=== PATIENT | male | born 1995 | race Caucasian/White ===

== ENCOUNTER 2018-01-23 11:58 | Observation (INO) | payer OTHER, SELFPAY ==
[2018-01-23] VITALS (11 sets, daily range): BP systolic 105–154; BP diastolic 48–91; PULSE 43–86; RESP 16–18; TEMP 36.2–36.9; O2SAT 97–100; BMI 25.2; BMI 24.8; BMI 24.9
[2018-01-23] MEDS: Ondansetron 4 MG/2 ML Vial IV (11:45)
[2018-01-23] MEDS: Morphine 2 MG/ML Syringe 8 MG IV (11:45)
--- NOTE | 2018-01-23 12:23 | RAD_ITS ---
STUDY: X-RAY - RIGHT FEMUR REASON FOR STUDY: Male, 22 years old. Soft tissue laceration. TECHNIQUE: Radiological exam, femur, minimum 2 views COMPARISON: None. FINDINGS: Normal visualized femur. There is evidence of soft tissue laceration overlying the anterior lateral portion of the mid leg. RAD/Femur Min 2 Views IMPRESSION: Large soft tissue laceration. No bony abnormality is seen. No radiopaque foreign body is present. Electronically Signed: Pawan Rodas MD at 13:15 EDT Tel [phone], Service support ,
--- NOTE | 2018-01-23 13:52 | PCM.HP.STD ---
History of Present Illness Date of Admission: 01/23/18 Chief Complaint: right thigh pain The patient is a 22 year old otherwise healthy male presents today after working with his chainsaw cutting wood. Patient lost control of the chain saw and sustained an injury to his right thigh. Emergency department physician attempted to numb up the area and cleaned the wound however patient had significant beds of felt a bedside debridement would be inadequate. Patient was given 2 g Ancef. He did have stitches recently in his leg and has had up-to-date tetanus. Patient reports achy 7 out of 10 pain better with pain medications. No numbness and tingling in the distal extremity. He does chew tobacco daily denies smoking. Past Medical History Allergies No Known Allergies Allergy (Verified 01/23/18 12:02) Home Medications: Ambulatory Orders Medication Instructions Recorded NK 01/23/18 Surgical History: no surgical history Psychiatric History: No pertinent psych hx Lives: Alone Tobacco Use: Non-smoker, Chew Alcohol: Occasional Drugs: None Review of Systems Constitutional: Denies: Chills, Fever, Weight Change HEENT: Denies: Head Aches, Sinus Congestion, Sinus Drainage Cardiovascular: Denies: Chest Pain, Palpitations Respiratory: Denies: Cough, Shortness of breath at rest, Sputum production Gastrointestinal: Denies: Abdominal Pain, Nausea, Vomiting Genitourinary: Denies: Dysuria Musculoskeletal: Reports: - - See HPI Skin: Reports: Wounds. Denies: Rash Neurological: Denies: Numbness, Tingling, Focal weakness Psychiatric: Denies: Anxiety, Depression, Homicidal Ideations, Suicidal Ideations Hematologic/ Lymphatic: Denies: Easy Bruising, Easy Bleeding VTE Information - Inpt Only VTE Present on Admission: No VTE Mechan Device Prophylaxis: SCD's VTE Pharm Prophylaxis ordered?: No Reason prophylaxis not ordered:: Medical Contraindication - Plan for surgery this afternoon - Physical Exam General: Alert, Oriented x3, Cooperative HEENT: Atraumatic Neck: No JVD Lungs: - - Nonlabored breathing Cardiovascular: - - Regular pulse rate Abdomen: Non-Distended Extremities: - - Left lower extremity has some medial thigh small 1 cm lacerations roughly 3 over the mid medial thigh. Saphenous, sural, superficial peroneal, deep peroneal, tibial nerve distributions. Positive dorsiflexion EHL and plantar flexion. 2+ DP and PT pulses. Right lower extremity shows a deep 15 cm x 10 cm laceration obliquely in the anterior thigh that goes deep into the muscle belly. No gross bleeding is noted. The area has been numbed up. The skin edges show gross debris and necrosis. 2+ DP and PT pulses distally. Positive dorsiflexion EHL and plantar flexion. Patient is able to fully extend his knee and do a straight leg raise. Sensations intact light touch saphenous, superficial peroneal, deep peroneal sural and tibial nerve distributions. Vital Signs Temp Pulse Resp BP Pulse Ox 97.1 F L 86 16 142/69 H 100 01/23/18 11:59 01/23/18 11:59 01/23/18 11:59 01/23/18 11:59 01/23/18 11:59 Oxygen Delivery Method Room Air Weight: 186 lb 1.122 oz Body Mass Index (BMI) 25.2 Assessment/Plan Patient has a traumatic laceration due to a chainsaw of the right thigh. At this time a debridement in the emergency department would be inadequate. Patient has been consented for surgery. Discussed risk benefits of surgery which include but not limited to blood loss, DVTs, PEs, neurovascular was complex, the risk of anesthesia including loss of life. Patient did straighten understanding wishes to proceed. Patient also understands that this may require multiple debridements depending on the amount of gross debris and infections that may develop. Patient has been started on Ancef. We will make him n.p.o. We will admit him to observation tonight. We will plan on washing his wounds out tonight with the intense debridement followed by possible wound closure versus wound VAC placement. Patient is agreeable to this plan and able to sign informed consent he also understands it may take multiple surgeries. RAMONITA [facility] Office:
[2018-01-23] MEDS: Cefazolin 2 GM in 0.9% Normal Saline 100 ML IV (14:46)
[2018-01-23] MEDS: Morphine 4 MG/ML Syringe IV (14:46)
--- NOTE | 2018-01-23 16:22 | ED.VISSUMM ---
- ER Visit Summary Date of Service: 01/23/18 Chief Complaint: Chainsaw injury History of Present Illness: The patient is a 22 M presenting for evaluation secondary to a chainsaw injury. Patient reports that he was using a chainsaw earlier today and suffered a laceration to his right thigh mainly but also some smaller lacerations to his right groin and left groin weakness. Pain is severe worse with movement he denies any numbness or weakness his tetanus status is up-to-date. Physical Examination: Primary survey: Airway is patent, breath sounds equal bilateral, central peripheral pulses 2+ and symmetric, GCS 15 out of 15. Vitals within normal limits. Secondary survey: General: Well-nourished well-developed no acute distress Head: Normocephalic atraumatic Eyes: PERRLA, EOMI ENT: Atraumatic Neck: Nontender full range of motion, no step-offs noted Heart: Regular rate and rhythm no murmurs Lungs: Respirations nondistressed, lung sounds clear to auscultation bilaterally, chest nontender, normal chest excursion bilaterally Abdomen: Soft nontender nondistended normal bowel sounds no palpable abdominal masses Back: Nontender no step-offs noted Extremities: Examination patient's left lower extremity shows some smaller more superficial lacerations noted of the patient's left medial thigh measuring approximately 3 cm and 2 cm. Normal range of motion of the left hip knee ankle and foot with normal distal pulses on that side. Right lower extremity exam shows evidence of a large full-thickness approximately 15 cm laceration going through fascia down into the patient's musculature. It appears to violate through the rectus femoris into the vastus muscles. Patient has range of motion of the thigh and knee with good extensor mechanism. Normal sensation distally normal distal pulses normal distal capillary refill. There is also a more proximal laceration that measures about 2 cm and is much more superficial. Skin: Normal color no trauma Neuro: Alert and oriented ?4, GCS 15 out of 15, no lateralizing neurological deficits. Test Results: Thigh x-ray shows no evidence of bony injury Emergency Department Course and Treatment: Patient presented for evaluation secondary to a chain saw injury. Primary and secondary surveys are noted as above. I anesthetized the patient's large thigh wound with total of 20 cc 1% lidocaine and started to irrigate. Large amounts of foreign material including pieces of fabric, would were coming from all areas within this wound. The wound also seems to violate the first layer of the patient's thigh musculature going into the deep musculature. I believe that this patient would benefit from operative washout. I discussed this with Dr. Chase who agreed. Patient was given a dose of Ancef and will be taken to the operating room. Disposition: Operating room Impression: 1. Right thigh laceration secondary to chainsaw injury Critical care time 35 minutes This note was generated with [employer] dictation software. It may contain incorrect words, spelling, and punctuation that were not noted in review of the chart prior to signing ED Disposition - Plan for ED Patient: Disposition: Acute Care Hospital [facility] Chief Complaint: Laceration
[2018-01-23 17:15] LABS: Absolute Lymphocyte Count 3.91 X10^3/ul (0.83-4.51); Absolute Neutrophil Count 6.9 X10^3/uL (2.0-7.7); Basophil# 0.04 X10^3/uL; Basophil% 0.3 % (0-1); Eosinophil# 0.05 X10^3/uL; Eosinophils% 0.4 % (0-5); Hematocrit 44.1 % (40-54); Hemoglobin 15.9 g/dl (13.0-16.5); Lymphocyte # 3.91 X10^3/ul (4.0); Lymphocyte % 33.2 % (19-41); Mean Corp Hgb Conc 36.1 g/gl (32-36); Mean Corpuscular Hgb 30.9 pg (27.0-32.0); Mean Corpuscular Volume 85.6 fL (80-94); Mean Platelet Vol. 11.3 fl (6.2-12.0); Monocyte% 7.6 % (0-10); Neutrophil # 6.86 X10^3/uL (2.7-7.7); Neutrophil % 58.2 % (47-70); Platelet Count 312 K/mm3 (150-450); RBC Distribution Width CV 13.1 % (11.6-14.6); RBC Distribution Width SD 40.3 fl (35.1-43.9); Red Blood Count 5.15 M/mm3 (4.6-6.2); White Blood Count 11.8 K/mm3 (4.4-11.0)
[2018-01-23 17:28] LABS: POSITIVE COUNT NO; POSITIVE DIFFERENTIAL NO; POSITIVE MORPHOLOGY NO
--- NOTE | 2018-01-23 18:13 | PCM.OPRPT ---
Report of Operation Date of Procedure: 01/23/18 Pre-Operative Diagnosis: Chainsaw injury bilateral thighs Post-Operative Diagnosis: Chainsaw injury bilateral thighs Surgery/Procedure Performed:: 1. Irrigation debridement right thigh wound skin subcutaneous fatty tissue, fascia and muscle 168 mm x 65 mm. 2. Complex wound closure right thigh 168 mm. 3. Irrigation debridement right thigh wound skin subcutaneous tissue and fat 16 mm x 10 mm. 4. Irrigation debridement leftt thigh wound skin subcutaneous tissue and fat 15 mm x 8 mm. 5. Irrigation debridement leftt thigh wound skin subcutaneous tissue and fat 17 mm x 8 mm. 6. Irrigation debridement leftt thigh wound skin subcutaneous tissue and fat 20 mm x 8 mm Description of Surgical Findings:: Wounds were grossly contaminated with debris from the patient's clothing and dirt. They were aggressively cleaned and at the end of the debridement no debris could be noted in the wound. pediatric care coordinator: Reji Odom Type of Anesthesia:: General Anesthesiologist: Honey Ojeda Special Medications: 2 g Ancef Estimated Blood Loss (mL): 50 Fluids Replaced: 1000 milliliters crystalloid Description of Procedure: On the date of the procedure patient was greeted in the preoperative area. Both eyes were marked and the wounds to be debrided were identified. Patient was brought back to the operating room where he was transferred to the table in the supine position. Anesthesia assumed control the C-spine and airway and remained to control throughout the remainder the procedure. All bony prominences identified well-padded. Anesthesia administered general anesthetic. Once the patient was comfortable dressings were removed. Both legs were prepped in a sterile fashion using Betadine prep. Once they were prepped both the retail store assistant and myself scrubbed. Upon reentering the room both legs were prepped in a standard orthopedic fashion. Timeout was called. When agreed upon the side, the site, and the procedure to be performed, patient's identity and antibiotics given. At this time our attention was directed towards the left thigh. There were 3 wounds on this side. We started with the most proximal wound which was 15 mm x 8 mm. Skin was debrided around the edges. Sub cutaneous tissue and fat was debrided. This was done sharply and with curettage. We then directed our attention to the middle wound which was 17 mm x 8 mm. Skin was debrided around the edges. Sub cutaneous tissue and fat was debrided. This was done sharply and with curettage. We then directed our attention to the most distal wound which was 20 mm x 10 mm. Skin was debrided around the edges. Sub cutaneous tissue and fat was debrided. This was done sharply and with curettage. Once these wounds were adequately debrided normal saline was used to irrigate out the wounds with low-pressure lavage. Once wounds were appropriately irrigated my retail store assistant then closed the wounds using a mattress type suture obtaining a primary closure while I turned my attention to the right thigh. As my attention was turned to the right thigh I focused on the more proximal wound initially which was 16 mm x 10 mm. Skin was debrided around the edges. Sub cutaneous tissue and fat was debrided. This was done sharply and with curettage. Once this wound was debrided attention was directed towards the large wound on the right thigh. This wound had the most gross debris. 2 mm of skin edges were debrided at the lateral border of the wound and medially where there was significant pattern consistent with a chain saw injury with necrotic and jagged skin edges 5 mm of skin edge was debrided at the medial border. Once the skin edges were debrided subcutaneous fat and fascia were debrided in a sharp fashion. We also debrided any gross debris. We then directed our attention to the muscle. The muscle was explored and gross debris was removed and debrided and necrotic muscle was debrided. The injury did not go completely down to the bone. The confluence of the vastus musculature was noted as the deepest aspect of the wound. Once the wound was adequately debrided normal saline under low-pressure lavage roughly 6 L was irrigated throughout the wound. Periodically throughout this time irrigation was stopped and the wound was re-debrided with any debris or necrotic tissue was noted. After we adequately irrigated out the wound the wound was once again explored and no further necrotic debris or foreign debris were noted. At this time based on the minimal localized swelling we elected to proceed with primary closure. Fascia was closed in interrupted fashion using 0 Vicryl. Once the fascia was closed all compartments remain soft. At this time the skin was able to be approximated. We loosely approximated the skin using 2-0 Vicryl subcutaneously. Then we used mattress sutures/retention sutures to close the entirety of the 16 cm wound performing the complex wound closure wound closure was complex because we had to identify the appropriate skin edges and maximum appropriately as well as used retention sutures to close the gaping wound. Once this was closed Xeroform dressing was placed on all wounds, sterile dressing was placed on the wounds, compressive dressing was placed on all wounds. Both thighs had an Rafi bandage wrap in the right leg was placed in a knee immobilizer. Patient was then awakened by anesthesia and transferred to the PACU for recovery in stable condition. Postop plan: Patient will wear the knee immobilizer on the right for 2 weeks. He will get 24 hours of antibiotics and we will reassess his wound tomorrow. He can be weight-bear as tolerated in the knee immobilizer. Will be weight-bear as tolerated range of motion as tolerated in the left lower extremity. - Complications None - Admit VTE Documentation VTE Present on Admission: No VTE Mechan Device Prophylaxis: SCD's, Thigh High LUIS Hose VTE Pharm Prophylaxis ordered?: Yes
--- NOTE | 2018-01-23 18:17 | OP.PCM_ITS ---
Report of Operation Date of Procedure: 01/23/18 Pre-Operative Diagnosis: Chainsaw injury bilateral thighs Post-Operative Diagnosis: Chainsaw injury bilateral thighs Surgery/Procedure Performed:: 1. Irrigation debridement right thigh wound skin subcutaneous fatty tissue, fascia and muscle 168 mm x 65 mm. 2. Complex wound closure right thigh 168 mm. 3. Irrigation debridement right thigh wound skin subcutaneous tissue and fat 16 mm x 10 mm. 4. Irrigation debridement leftt thigh wound skin subcutaneous tissue and fat 15 mm x 8 mm. 5. Irrigation debridement leftt thigh wound skin subcutaneous tissue and fat 17 mm x 8 mm. 6. Irrigation debridement leftt thigh wound skin subcutaneous tissue and fat 20 mm x 8 mm Description of Surgical Findings:: Wounds were grossly contaminated with debris from the patient's clothing and dirt. They were aggressively cleaned and at the end of the debridement no debris could be noted in the wound. harpsichord maker: Reji Odom Type of Anesthesia:: General Anesthesiologist: Honey Ojeda Special Medications: 2 g Ancef Estimated Blood Loss (mL): 50 Fluids Replaced: 1000 milliliters crystalloid Description of Procedure: On the date of the procedure patient was greeted in the preoperative area. Both eyes were marked and the wounds to be debrided were identified. Patient was brought back to the operating room where he was transferred to the table in the supine position. Anesthesia assumed control the C-spine and airway and remained to control throughout the remainder the procedure. All bony prominences identified well-padded. Anesthesia administered general anesthetic. Once the patient was comfortable dressings were removed. Both legs were prepped in a sterile fashion using Betadine prep. Once they were prepped both the psychiatric nursing assistant and myself scrubbed. Upon reentering the room both legs were prepped in a standard orthopedic fashion. Timeout was called. When agreed upon the side, the site, and the procedure to be performed, patient's identity and antibiotics given. At this time our attention was directed towards the left thigh. There were 3 wounds on this side. We started with the most proximal wound which was 15 mm x 8 mm. Skin was debrided around the edges. Sub cutaneous tissue and fat was debrided. This was done sharply and with curettage. We then directed our attention to the middle wound which was 17 mm x 8 mm. Skin was debrided around the edges. Sub cutaneous tissue and fat was debrided. This was done sharply and with curettage. We then directed our attention to the most distal wound which was 20 mm x 10 mm. Skin was debrided around the edges. Sub cutaneous tissue and fat was debrided. This was done sharply and with curettage. Once these wounds were adequately debrided normal saline was used to irrigate out the wounds with low- pressure lavage. Once wounds were appropriately irrigated my psychiatric nursing assistant then closed the wounds using a mattress type suture obtaining a primary closure while I turned my attention to the right thigh. As my attention was turned to the right thigh I focused on the more proximal wound initially which was 16 mm x 10 mm. Skin was debrided around the edges. Sub cutaneous tissue and fat was debrided. This was done sharply and with cur ettage. Once this wound was debrided attention was directed towards the large wound on the right thigh. This wound had the most gross debris. 2 mm of skin edges were debrided at the lateral border of the wound and medially where there was significant pattern consistent with a chain saw injury with necrotic and jagged skin edges 5 mm of skin edge was debrided at the medial border. Once the skin edges were debrided subcutaneous fat and fascia were debrided in a sharp fashion. We also debrided any gross debris. We then directed our attention to the muscle. The muscle was explored and gross debris was removed and debrided and necrotic muscle was debrided. The injury did not go completely down to the bone. The confluence of the vastus musculature was noted as the deepest aspect of the wound. Once the wound was adequately debrided normal saline under low- pressure lavage roughly 6 L was irrigated throughout the wound. Periodically throughout this time irrigation was stopped and the wound was re-debrided with any debris or necrotic tissue was noted. After we adequately irrigated out the wound the wound was once again explored and no further necrotic debris or foreign debris were noted. At this time based on the minimal localized swelling we elected to proceed with primary closure. Fascia was closed in interrupted fashion using 0 Vicryl. Once the fascia was closed all compartments remain soft. At this time the skin was able to be approximated. We loosely approximated the skin using 2-0 Vicryl subcutaneously. Then we used mattress sutures/retention sutures to close the entirety of the 16 cm wound performing the complex wound closure wound closure was complex because we had to identify the appropriate skin edges and maximum appropriately as well as used retention sutures to close the gaping wound. Once this was closed Xeroform dressing was placed on all wounds, sterile dressing was placed on the wounds, compressive dressing was placed on all wounds. Both thighs had an Rafi bandage wrap in the right leg was placed in a knee immobilizer. Patient was then awakened by anesthesia and transferred to the PACU for recovery in stable condition. Postop plan: Patient will wear the knee immobilizer on the right for 2 weeks. He will get 24 hours of antibiotics and we will reassess his wound tomorrow. He can be weight-bear as tolerated in the knee immobilizer. Will be weight-bear as tolerated range of motion as tolerated in the left lower extremity. - Complications None - Admit VTE Documentation VTE Present on Admission: No VTE Mechan Device Prophylaxis: SCD's, Thigh High LUIS Hose VTE Pharm Prophylaxis ordered?: Yes
[2018-01-23] MEDS: Ketorolac 15 MG/ML Vial IV (19:58)
[2018-01-23] MEDS: 0.9% NaCl Peripheral Flush Adult/Peds IV (21:33)
[2018-01-23] MEDS: oxyCODONE 5 MG Tablet PO (21:33)
[2018-01-24] MEDS: Cefazolin 1 GM/50 ML BAG IV ×2 (01:36→09:38)
[2018-01-24] MEDS: 0.9% NaCl Peripheral Flush Adult/Peds IV (02:37)
[2018-01-24 02:49] VITALS: BP 117/53; PULSE 64; RESP 12; TEMP 36.8; O2SAT 96
[2018-01-24 07:04] LABS: Hematocrit 41.5 % (40-54); Hemoglobin 14.2 g/dl (13.0-16.5); Mean Corp Hgb Conc 34.2 g/gl (32-36); Mean Corpuscular Hgb 29.9 pg (27.0-32.0); Mean Corpuscular Volume 87.4 fL (80-94); Mean Platelet Vol. 11.2 fl (6.2-12.0); Platelet Count 218 K/mm3 (150-450); RBC Distribution Width CV 13.3 % (11.6-14.6); RBC Distribution Width SD 41.4 fl (35.1-43.9); Red Blood Count 4.75 M/mm3 (4.6-6.2); White Blood Count 12.1 K/mm3 (4.4-11.0)
[2018-01-24] MEDS: oxyCODONE 5 MG Tablet PO ×2 (07:06→13:42)
[2018-01-24 07:07] LABS: Scan Indicated on CBC? Y/N NO
[2018-01-24 07:29] LABS: Creatinine, Serum 0.91 mg/dL (0.70-1.30); EST Glomerular Filtration Rate 109 mL/min (>60); Est Glom Filt Rate - Afr Amer 132 mL/min (>60); Estimated Creatinine Clearance 138.57 ml/min
--- NOTE | 2018-01-24 07:35 | PCM.PN.ORT ---
Subjective: The patient was sitting in bed upon examination. Patient denies any chest pain, shortness of breath, dizziness, lightheadedness, nausea or vomiting, or calf pain. Pain is controlled on medications. No adverse overnight events. Patient is currently in a knee immobilizer on the right lower extremity. He is weightbearing as tolerated with the knee immobilizer on. Overall patient is doing well. Plan will be for him to possibly go home this afternoon. Objective: Vital signs stable and afebrile. Patient is able to plantarflex and dorsiflex actively. Sensation is intact to light touch to saphenous, sural, superficial and deep peroneal, and tibial distribution. Dressings were taken down and wound was inspected. There is no active drainage and overall looks very well. Negative Homans bilaterally, negative signs and symptoms of DVT. - Physical Exam General: Alert, Oriented x3, Cooperative, No apparent distress Vital Signs Temp Pulse Resp BP Pulse Ox 98.2 F 64 12 117/53 L 96 01/24/18 02:49 01/24/18 02:49 01/24/18 02:49 01/24/18 02:49 01/24/18 02:49 Oxygen Delivery Method Room Air Weight: 83.143 kg Body Mass Index (BMI) 24.8 Intake and Output for Last 24 Hours 01/22/18 01/23/18 01/24/18 23:59 23:59 23:59 Intake Total 3525 / 3525 667 / 667 Output Total 0 / 0 Balance 3525 / 3525 667 / 667 Laboratory Tests Past 24 Hrs 01/23/18 01/23/18 01/24/18 12:05 12:05 06:10 WBC 11.8 H 12.1 H RBC 5.15 4.75 Hgb 15.9 14.2 Hct 44.1 41.5 MCV 85.6 87.4 MCH 30.9 29.9 MCHC 36.1 H 34.2 RDW 13.1 13.3 RDW Differential 40.3 41.4 Plt Count 312 218 MPV 11.3 11.2 Immature Gran % (Auto) 0.300 Neut % (Auto) 58.2 Lymph % (Auto) 33.2 [place] % (Auto) 7.6 Eos % (Auto) 0.4 Baso % (Auto) 0.3 Absolute Neuts (auto) 6.9 Absolute Lymphs (auto) 3.91 Total Counted Not Reportable Creatinine Estim Creat Clear Calc Est GFR (MDRD) Af Amer Est GFR (MDRD) Non-Af Blood Type A POSITIVE Antibody Screen NEGATIVE 01/24/18 06:10 WBC RBC Hgb Hct MCV MCH MCHC RDW RDW Differential Plt Count MPV Immature Gran % (Auto) Neut % (Auto) Lymph % (Auto) [place] % (Auto) Eos % (Auto) Baso % (Auto) Absolute Neuts (auto) Absolute Lymphs (auto) Total Counted Creatinine 0.91 Estim Creat Clear Calc 138.57 Est GFR (MDRD) Af Amer 132 Est GFR (MDRD) Non-Af 109 Blood Type Antibody Screen Medical Necessity - Tobacco Use Smoking Status: Current every day smoker Tobacco Use: Non-smoker, Chew Assessment/Plan 1. S/P irrigation debridement right thigh wound with complex wound closure and irrigation debridement left thigh wound POD #1 2. Continue Pain Medications: Tylenol and oxycodone 3. PT/OT: Patient will weight-bear as tolerated with the knee immobilizer on the right lower extremity for 2 weeks. No range of motion right knee. Weight-bear as tolerated on the left lower extremity with range of motion as tolerated 4. Disposition: Plan will be for possible discharge this afternoon. Continue with antibiotics postoperatively for 24 hours. Overall incisions appear well. He will continue with the knee immobilizer on the right lower extremity for 2 weeks with no range of motion. Weight-bear as tolerated bilaterally. Okay for gentle range of motion on the left lower extremity as tolerated. Prescriptions are attached to chart. Patient will follow-up in [address] Bandar Chase for reevaluation of incisions and suture removal.
--- NOTE | 2018-01-24 07:46 | DCINST_ITS ---
Discharge Diet: No Restrictions Discharge Activity: May Not Drive Ice area for (Minutes): 20 - Ice area for 20 minutes each hour while awake Weight Bearing Status: Weight bearing as tolerated - With knee immobilizer on right lower extremity Keep extremity elevated above heart level: Operative Extremity Call your doctor if your incision/area has: Continuous Slow Oozing, Sudden Increased Bleeding, Increased Pain/ Swelling, Increased Redness, Foul Smelling Discharge Call your doctor if you observe: Fever of 101 or Higher, Coldness, Increased Pain, Numbness or Tingling, Change in Color Change Dressing in (Days):: 1 - Daily dressing changes Additional Instructions: Keep incisions clean and dry. Okay for daily dressing changes bilaterally. Weight-bear as tolerated with knee immobilizer on right lower extremity. No range of motion right knee. Okay to work on gentle range of motion of the left knee as tolerated. Allergies/Adverse Reactions: Allergies No Known Allergies Allergy (Verified 01/23/18 12:02) Medications to take at Discharge Acetaminophen [Tylenol] 1,000 mg PO Q8 #90 tab 01/24/18 Aspirin [Aspirin, Baby] 81 mg PO DAILY@0800 #14 tab.[email or web address] 01/24/18 Oxycodone [Oxyir] 5 - 10 mg PO Q4H PRN PRN 4 Days #45 tab 01/24/18 The following prescriptions were given: Oxycodone [Oxyir] 5 - 10 mg PO Q4H PRN PRN 4 Days #45 tab PRN Reason: Pain Acetaminophen [Tylenol] 1,000 mg PO Q8 #90 tab Aspirin [Aspirin, Baby] 81 mg PO DAILY@0800 #14 tab.chew Primary Care Physician: Care Physician,No Primary [Primary Care Provider] - Test Results: Test results from this visit will be discussed in further detail at your follow- up appointment, if applicable. Please Follow Up With: Bandar Chase MD When: Schedule follow-up in approximately 12-13 days
[2018-01-24] MEDS: Aspirin 81 MG TAB.CHEW PO (08:34)
[2018-01-24 08:50] VITALS: BP 136/74; PULSE 66; RESP 18; TEMP 36.8; O2SAT 97
[2018-01-24] MEDS: Acetaminophen 500 MG Tablet 1000 MG PO (13:42)
== END 2018-01-24 15:16 | disposition home or self-care (01) ==
LOC: ED 14:13 → MS2 14:42
PROVIDERS: Anesthesiology; Admitting Provider Specialist; Emergency Provider Emergency Medicine; Visit Provider Specialist
PROC: (CPT 11042; principal; 2018-01-23 07:20)
DX: S71.122A Laceration with foreign body, left thigh, initial encounter (principal); S71.121A Laceration with foreign body, right thigh, initial encounter; W29.3XXA Contact with powered garden and outdoor hand tools and machinery, initial encounter; Y93.89 Activity, other specified; Y92.9 Unspecified place or not applicable; F17.220 Nicotine dependence, chewing tobacco, uncomplicated
CPT/HCPCS: 11042; 11043; 13121; 13122 ×2; 36415; 73552; 82565; 85025; 85027; 86850; 86900; 96365; 96366; 96375; 96376; 97802; 99218; 99282; 99406; J7030; J7120; A4216; G0378; J2405